=== PATIENT | female | born 1955 | race Caucasian/White ===

== ENCOUNTER 2021-10-19 15:22 | Outpatient (CLI) | payer MEDICARE, BC, SELFPAY ==
[2021-10-19 11:08] LABS: Albumin* 4.4 g/dL (3.3-5.0); Chloride* 105 mmol/L (96-114); Sodium* 141 mmol/L (135-149)
[2021-10-19 11:10] LABS: Bilirubin Total* 0.4 mg/dL (0.1-1.5); Creatinine* 0.8 mg/dL (0.5-1.5); Estimated Glomerular Filt Rate 81 ml/min
[2021-10-19 11:11] LABS: Alanine Aminotransferase* 31 U/L (4-35); Alkaline Phosphatase* 89 U/L (40-150); Aspartate Amino Transferase* 32 U/L (12-35); Blood Urea Nitrogen* 22 mg/dL (7-30); Calcium* 8.9 mg/dL (8.4-10.6); Carbon Dioxide* 24 mmol/L (20-32); Glucose* 110 mg/dL (60-115); Total Protein* 6.9 g/dL (6.0-8.3)
== END 2021-10-19 15:23 | disposition home or self-care (01) ==
PROVIDERS: Visit Provider Dermatology
DX: Z79.899 Other long term (current) drug therapy (principal)
CPT/HCPCS: 80053

== ENCOUNTER 2022-01-16 16:07 | Outpatient (CLI) | payer MEDICARE, BC, SELFPAY ==
--- OUTSIDE RECORDS SUMMARY | 2022-01-16 16:14 | XMS_ITS | Clinical Summary ---
:1955 Author Organization [facility] [facility] [place] [address] Care Team Providers Name Role Phone Jamaalbeatrice Janine Dooley DO Primary Care Provider Allergies Active Allergy Reactions Severity Noted Date Comments Amoxicillin Hives 07/18/2009 Penicillins Hives 08/27/2021 Medications Medication Sig Dispensed Refills Start Date End Date Status cholecalciferol Take 1 capsule by 0 02/29/2016 Active (VITAMIN D3) 1,000 mouth once daily. unit capsuleIndications: Vitamin D deficiency folic acid 1 mg Take 1 mg by mouth 0 04/08/2020 Active tablet once daily. methotrexate TAKE 10 TABLETS BY 0 06/06/2020 Active (RHEUMATREX) 2.5 mg MOUTH WEEKLY. JUNE tablet SPLIT DOSE BETWEEN 2 CONSECUTIVE DAYS calcium carbonate Take 1 Tablet (600 180 Tablet 3 08/16/2020 Active (CALTRATE) 600 mg mg) by mouth 2 calcium (1,500 mg) times daily with tablet meals. clobetasol cream APPLY TOPICALLY TO 0 08/29/2020 Active 0.05% (TEMOVATE) 0.05 THE AFFECTED AREA % cream TWICE DAILY NEEDED calcipotriene 0.005% calcipotriene 0.005 % topical ointment 0 Active (DOVONEX) 0.005 % APPLY EXTERNALLY TO THE AFFECTED AREA DAILY ointment mirabegron Take 1 Tablet (25 90 Tablet 3 12/07/2021 Active EXTENDED-release mg) by mouth once (Myrbetriq) 25 mg daily. 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 Overview: Colonoscopy 05/2008 polyps repeat in 5 ye ars Colonoscopy 09/2011 normal repeat in 5 ye ars Colonoscopy 10/2018 long colon, repeat in 5 years with Pediatrics scope Encounters Date Type Specialty Care Team Description 12/01/2021 Refill Janine Werner, DO Refill Request (Myrbetriq) from Last 3 Months Immunizations Name Administration Dates Next Due COVID-19 vaccine (Moderna 100mcg/0.5mL) PF, MDV 12/04/2020 Influenza, High-dose Quadrivalent Inactivated 11/21/2020 Influenza, IIV3 (Age >=3 years) 11/17/2012, 11/11/2011 Influenza, IIV4 10/21/2019, 12/22/2016 Influenza, IIV4 (=>6mos) MDV 03/09/2018 Pneumococcal Poly,23-Valent (Pneumovax) 11/24/2020 Td (Age >=7 Years) 03/06/2000 Tdap 05/21/2013, 05/18/2010 Zoster (Shingrix-RZV, recombinant) 11/09/2020, 04/21/2018 Family History Medical History Relation Name Comments Leukemia Brother exacerbated billy ntia Other Brother colon polyps and duodenal mass Cancer-prostate Father Heart failure Father Other Father interstitial carmel g disease Diabetes Mother Heart Disease Mother Triple bypass Hyperlipidemia Mother Hypertension Mother Other Mother dementia Cancer Paternal Grandfather Cancer Paternal Grandmother Alzheimer's disease Sister 1 Judy early onset Hyperlipidemia Sister 1 Judy Other Sister 1 Judy colon polyps Thyroid Disease Sister 1 Judy Other Sister 2 Kathleen risk for ocular melanoma, ? monitoring, tin roofer catherine fatigue Sleep apnea Sister 2 Kathleen No Known Problems Son 1 No Known Problems Son 2 Cancer-breast No Family History Relation Name Status Comments Brother (Age 65) Father (Age 91) pulmonary fibr osis Mother (Age 87) Paternal Grandfather Paternal Grandmother Sister 1 Judy passed of compli cations of Alzheimer's, pos sible COVID Sister 2 Kathleen Alive Son 1 Alive Son 2 Alive Social History Tobacco Use Types Packs/Day Years Used Date Never Smoker Smokeless Tobacco: Never Used Tobacco Cessation: Counseling Given: Yes Alcohol Use Standard Drinks/Week Comments Not Currently 0 (1 standard drink = 0.6 oz pure alcoho l) very rare Alcohol Habits Answer Date Recorded How often do you have a drink containing alcohol? Not asked How many drinks containing alcohol do you have on a typical Not asked day when you are drinking? How often do you have six or more drinks on one occasion? No t asked Comment: very rare 05/18/2009 Sex Assigned at Date Recorded Not on file Obstetrics History Para Term AB IAB SAB Ectopic Multiple Living Live Births 2 2 Date Outcome GA Total Labor/2nd/3rd Weight Sex Delivery Anes PTL Soumya A 1 A5 Name Clin Labor Last Filed Vital Signs Vital Sign Reading Time Taken Comments Blood Pressure 135/70 08/27/2021 12:23 PM CDT Pulse 68 08/27/2021 12:23 PM CDT Temperature 36.8 ??C (98.3 ??F) 08/27/2021 12:23 PM CDT Respiratory Rate - - Oxygen Saturation 96% 08/27/2021 12:23 PM CDT Inhaled Oxygen Concentration - - Weight 78.5 kg (173 lb) 09/13/2020 1:18 PM CDT Height 156.1 cm (5' 1.46) 08/16/2020 1:18 PM CDT Body Mass Index 32.2 08/16/2020 1:18 PM CDT Plan of Treatment Health Maintenance Due Date Last Done Comments COVID-19 vaccine series (4 - 01/29/2021 12/04/2020, 021, Booster for Moderna series) 04/07/2020 BMI (ht and wt on same day) for 08/16/2021 08/16/2020, 04/10, age 18+ 02/29/2016 Influenza for age 65+ 10/11/2021 11/21/2020, 10/21/2019, 03/09/2018, Additional history exists Pneumococcal series for age 65+ (2 11/24/2021 11/24/2020 - PCV) Mammogram for age 45-75 08/24/2022 08/24/2021, 07/21/2020, 04/14/2018, Additional history exists Medicare Wellness for age 65+ 08/27/2022 08/27/2021, 2020 Depression screening for age 12+ 08/29/2022 08/29/2021, , 08/16/2020, Additional history exists Tetanus booster 05/22/2023 05/21/2013, 05/18/2010, 03/06/2000 Colonoscopy through age 75 10/15/2023 10/14/2018, 9, 10/14/2018, Additional history exists Lipids for age 45-75 08/27/2026 08/27/2021, 08/15/2020, 04/21/2018, Additional history exists Tdap Completed 05/21/2013, 05/18/2010 Hepatitis C screening for age Completed 08/15/2020, 2020 18-79 Zoster (shingles) series for age Completed 11/09/2020, 01/2019 50+ DEXA/DXA scan for age 65+ Completed 08/29/2021, 04/27/2018 , 10/04/2014, Additional history exists Results Not on filefrom Last 3 Months Insurance Payer Benefit Plan / Subscriber ID Effective Dates Phone Addre ss Type Group [employer] [id number] 2020-Present [address] [address] [place], [place] ONLY [phone] Advance Directives Documents on File Type Date 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
[2022-01-16 17:31] LABS: Albumin* 4.7 g/dL (3.3-5.0); Chloride* 105 mmol/L (96-114); Potassium* 4.3 mmol/L (3.6-5.1); Sodium* 143 mmol/L (135-149)
[2022-01-16 17:33] LABS: Bilirubin Total* 0.4 mg/dL (0.1-1.5); Creatinine* 0.9 mg/dL (0.5-1.5); Estimated Glomerular Filt Rate 71 ml/min
[2022-01-16 17:34] LABS: Alanine Aminotransferase* 42 U/L (4-35); Alkaline Phosphatase* 97 U/L (40-150); Aspartate Amino Transferase* 42 U/L (12-35); Blood Urea Nitrogen* 19 mg/dL (7-30); Calcium* 9.3 mg/dL (8.4-10.6); Carbon Dioxide* 27 mmol/L (20-32); Glucose* 101 mg/dL (60-115); Total Protein* 7.3 g/dL (6.0-8.3)
== END 2022-01-16 16:08 | disposition home or self-care (01) ==
LOC: NFLDREF 16:07
PROVIDERS: Visit Provider Dermatology
DX: Z79.899 Other long term (current) drug therapy (principal)
CPT/HCPCS: 80053

== ENCOUNTER 2022-04-17 15:33 | Outpatient (CLI) | payer MEDICARE, BC, SELFPAY | END 2022-04-17 15:34 | disposition home or self-care (01) | LOC: NFLDREF 04-19 14:30 | PROVIDERS: Visit Provider Dermatology | DX: Z79.899 Other long term (current) drug therapy (principal); Z79.631 Long term (current) use of antimetabolite agent | CPT/HCPCS: 80053 ==

== ENCOUNTER 2022-06-06 14:50 | Outpatient (CLI) | payer MEDICARE, BC, SELFPAY | END 2022-06-06 14:51 | disposition home or self-care (01) | PROVIDERS: PCP Dermatology; Referring Provider Dermatology; Visit Provider Dermatology | DX: Z51.81 Encounter for therapeutic drug level monitoring (principal); Z79.631 Long term (current) use of antimetabolite agent | CPT/HCPCS: 80076 ==

== ENCOUNTER 2022-10-03 14:00 | Outpatient (CLI) | payer MEDICARE, BC, SELFPAY | END 2022-10-03 14:01 | disposition home or self-care (01) | LOC: NFLDREF 10-05 14:32 | PROVIDERS: Visit Provider Dermatology | DX: L20.9 Atopic dermatitis, unspecified (principal); Z79.631 Long term (current) use of antimetabolite agent | CPT/HCPCS: 80053 ==

== ENCOUNTER 2022-10-21 11:00 | Outpatient (RCR) | payer MEDICARE, BC, SELFPAY | END 2023-02-18 23:59 | disposition home or self-care (01) | PROVIDERS: PCP Dermatology; Visit Provider Student in an Organized Health Care Education/Training Program | DX: N81.10 Cystocele, unspecified (principal); R27.8 Other lack of coordination; R39.15 Urgency of urination; R35.1 Nocturia; R35.0 Frequency of micturition; Z51.89 Encounter for other specified aftercare | CPT/HCPCS: 97110; 97140; 97162; 97535 ==

== ENCOUNTER 2022-10-31 10:56 | Emergency (ER) | payer MEDICARE, BC, SELFPAY ==
[2022-10-31] VITALS (12 sets, daily range): BP systolic 108–184; BP diastolic 73–85; PULSE 60–69; RESP 18; TEMP 36.7; O2SAT 97–100; BMI 30.2
--- NOTE | 2022-10-31 11:28 | ED_ITS ---
HPI - General Adult General Time Seen by Provider: 11:29 Date Seen: 10/31/22 Chief complaint: Neuro Symptoms/Altered Deficit Stated complaint: Head pain, difficulty focusing and memory lapse Time Seen by Provider: 10/31/22 11:10 Source: patient and family Mode of arrival: ambulatory Limitations: no limitations History of Present Illness HPI narrative: Patient is a 67-year-old female with a history psoriasis on her fingers for it she takes methotrexate presenting to the emergency department for headache and memory issues. She is here with her . She states roughly months ago they got back from a trip to [place] and she had a dental implant placed soon after that. After the implants she is having tooth pain and a frontal headache that has since gone to a occipital headache that radiates to the front occasionally. She is says a very sharp pain in the back her head. Her tooth no longer hurts. She takes ibuprofen intermittently for the pain. Has not taken anything for the pain today. She is also concerned because she has been having issues with memory. States for the past few weeks she has been having more issues with number membranes pink and since similar things. 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 The patient's states that he is exaggerating. She also states she has occasional double visio n but does not currently have this. She states this has been going on for about a week and a half. Denies fevers, chills, weakness normal chest pain, shortness of breath, abdominal pain, hearing changes. Does admit to some fatigue. 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 Moist mucous membranes. Neck: Symmetric, trachea midline, No thyromegaly. CVS: RRR, No murmurs or gallops. Peripheral pulses 2+ and equal in all extremities RESP: Unlabored respiratory effort. Clear to auscultation bilaterally. GI: Nontender/Nondistended, No rebound or guarding. MSK:Extremities w/o deformity, Normal Active ROM Skin: Warm, Dry. No rashes or lesions. Neuro: Normal Muscle tone, No focal neurological deficits. GCS 15 Psych: Awake, Alert, & Oriented x3. Appropriate mood and affect. Const: Vital Signs, click to edit/add: Vital Signs - 24 hr 10/31/22 11:03 10/31/22 11:29 10/31/22 12:11 Temperature 98.1 F Pulse Rate Pulse Rate [Pulse Oximeter] 65 Respiratory Rate 18 Blood Pressure 184/81 H Blood Pressure [Ri ght Upper Arm] 108/83 Pulse Oximetry 100 98 Oxygen Delivery Me thod Room Air 10/31/22 12:16 10/31/22 12:30 10/31/22 12:33 Temperature Pulse Rate 60 65 Pulse Rate [Pulse Oximeter] Respiratory Rate Blood Pressure 182/85 H 158/85 H Blood Pressure [Ri ght Upper Arm] Pulse Oximetry 99 99 Oxygen Delivery Me thod 10/31/22 12:34 10/31/22 12:41 10/31/22 12:45 Temperature Pulse Rate 65 66 Pulse Rate [Pulse Oximeter] Respiratory Rate Blood Pressure 158/85 H 154/82 H Blood Pressure [Ri ght Upper Arm] Pulse Oximetry 98 100 Oxygen Delivery Me thod 10/31/22 12:46 10/31/22 12:52 10/31/22 12:56 Temperature Pulse Rate 69 62 63 Pulse Rate [Pulse Oximeter] Respiratory Rate Blood Pressure 148/73 H 146/84 H Blood Pressure [Ri ght Upper Arm] Pulse Oximetry 97 99 98 Oxygen Delivery Me thod Course Vital Signs Vital signs: Initial Vital Signs Temperature 98.1 F 10/31/22 11:03 Temperature Source Temporal Artery Scan 10/31/22 11:03 Pulse Rate 65 10/31/22 11:03 Respiratory Rate 18 10/31/22 11:03 Blood Pressure 108/83 10/31/22 11:03 Blood Pressure Mean 91 10/31/22 11:03 Pulse Oximetry 100 10/31/22 11:03 Oxygen Delivery Method Room Air 10/31/22 11:03 Vital Signs Temperature 98.1 F 10/31/22 11:03 Pulse Rate 65 10/31/22 11:03 Respiratory Rate 18 10/31/22 11:03 Blood Pressure 108/83 10/31/22 11:03 Pulse Oximetry 100 10/31/22 11:03 Oxygen Delivery Method Room Air 10/31/22 11:03 Temperature 98.1 F 10/31/22 11:03 Pulse Rate 63 10/31/22 12:56 Respiratory Rate 18 10/31/22 11:03 Blood Pressure 146/84 H 10/31/22 12:56 Pulse Oximetry 98 10/31/22 12:56 Oxygen Delivery Method Room Air 10/31/22 11:03 Medical Decision Making MDM Narrative Medical decision making narrative: Patient 67 year female presented emergency department for a headache in the occipital region, occasional blurry vision, and memory issues. The symptoms were gone for the past 2 to 4 weeks. With a relatively new onset of her memory issues I would do a head CT to make sure there is no other abnormalities. She denies any trauma to her head. Also ordered a CBC, BMP, magnesium, urinalysis. We did head CT for head else called in CT scanner to review the images immediately. When I reviewed them and few to have a large acute on chronic subdural hematoma about 2 cm in size with midline shift. The ventricles were seen in right portion of this couple. I immediately the images sent to [facility] and called for staff drains from [facility]. I spoke to admitting ICU provider and explained the situation and they accepted her for transfer. Patient is curre ntly stable but blood pressure has been going up and is now in the 180 systolic and labetalol was ordered. Goal is 140 systolic. Rest the lab work is pending at this time. I was able speak to the again and he does state he now remembers roughly round time the symptoms seemed to start she tripped and fell and hit her forehead against the ground. We will transfer the patient however means of transport can get her transferred the fastest. Lab Data Labs: Lab Results 10/31/22 Range/Units 11:47 WBC 8.39 (4.50-11.00) K/uL RBC 3.86 L (4.00-5.20) m/uL Hgb 11.6 L (12.0-16.0) gm/dL Hct 34.8 (33.0-51.0) % MCV 90 (80-100) fL MCH 30 (26-34) pg MCHC 33 (32-36) gm/dL RDW Coeff of Len 14.1 (11.5-15.5) % Plt Count 243 (140-440) K/uL Neut % (Auto) 65.5 (42.0-72.0) % Lymph % (Auto) 24.4 (20-44) % Luna % (Auto) 6.3 (0.0-11.0) % Eos % (Auto) 3.2 (0.0-7.0) % Baso % (Auto) 0.5 (0.0-3.0) % Neut # (Auto) 5.49 (1.7-7.0) K/uL Lymph # (Auto) 2.05 (0.90-2.90) K/uL Luna # (Auto) 0.50 (0.00-0.90) K/UL Eos # (Auto) 0.27 (0.00-0.50) K/uL Baso # (Auto) 0.04 (0.00-0.30) K/uL Abs Immat Gran (auto) 0.01 (0.00-0.30) K/uL Imm/Tot Granulo (auto) 0.1 % Sodium 139 (135-149) mmol/L Potassium 3.9 (3.6-5.1) mmol/L Chloride 110 (96-114) mmol/L Carbon Dioxide 22 (20-32) mmol/L Anion Gap 7 (7-15) mEq/L BUN 23 (7-30) mg/dL Creatinine 0.9 (0.5-1.5) mg/dL Estimated Creat Clear 43.18 Estimated GFR 70 ml/min Glucose 84 (60-115) mg/dL Calcium 9.0 (8.4-10.6) mg/dL Magnesium 2.2 (1.5-2.6) mg/dL Imaging Data CT scan - head: Radiologist's impression: INDICATION: X. COMPARISON: None. TECHNIQUE: CT of the brain/head without the use of IV contrast. Multiplanar axial, coronal, and sagittal reformats were reconstructed. FINDINGS: Large mixed attenuation subdural hematoma over the left cerebral hemisphere. This extends from the vertex down along the lateral convexities. The thickness of the hematoma is about 1.8 cm at maximum. There is underlying effacement of the normal sulcation. There is 1.1 cm of left to right midline shift at the level of the lateral ventricles. Minimal CSF at the basal cisterns without downward herniation seen. Compressed left lateral ventricle. No right, 3rd, or 4th ventriculomegaly. Normal hayward-white matter differentiation without acute territorial infarct or evidence of secondary infarct related to midline shift. No intraparenchymal mass. No fracture or focal osseous lesion. The mastoid and middle ears are clear. The paranasal sinuses are clear. Included orbit and globe are normal. IMPRESSION: Large acute on chronic left subdural hematoma with associated 1.1 cm of [id number] midline shift. Findings were called to Dr. Willy Gloria (Dr. Land in patient room) at 12:19 p.m. ESTABLISHMENT GUIDE on 10/31/[address] Batista. Please note that all CT scans at this facility use dose modulation, iterative reconstruction, and/or weight-based dosing when appropriate to reduce radiation dose to as low as reasonably achievable. Dictated by Ange Batista MD @ 10/31/2022 12:22:20 PM Critical Care Time Critical Care Time Critical Care Time: Yes Attestation: The patient required my highest level preparedness to intervene emergently and I personally spent this critical care time directly and personally managing the patient. This critical care time included: Obtaining a history; Examining the patient; Pulse oximetry; Ordering and reviewing of studies; Arranging urgent treatment with development of a management plan; Evaluation of patients response to treatment; Frequent reassessment discussions with other providers. This critical care time was performed to assess and manage the high probability of imminent life-threatening deterioration that could result in multiorgan failure. It was exclusive of separate billable procedures and treating other patients and teaching time. Total Critical Care Time in Minutes: 67 Discharge Plan Discharge Clinical Impression: Subdural hematoma Patient Disposition: Xfer [facility] Discharge Location: [facility] Condition: Critical Prescriptions: No Action calcipotriene 0.005 % ointment 1 applic topical BID Qty: 60 1RF Rx Instructions: rub in gently and completely methotrexate sodium 2.5 mg tablet 20 mg PO QWEEK Qty: 96 0RF Rx Instructions: Take 8 tablets one day every week Stand Alone Forms: [employer] Info Instructions
--- NOTE | 2022-10-31 11:29 | CRLHL7_ITS ---
For Patients: As a result of the Century Cures Act, medical imaging exams and procedure reports are released immediately into your electronic medical record. You may view this report before your referring provider. If you have questions, please contact your health care provider. INDICATION: X. COMPARISON: None. TECHNIQUE: CT of the brain/head without the use of IV contrast. Multiplanar axial, coronal, and sagittal reformats were reconstructed. FINDINGS: Large mixed attenuation subdural hematoma over the left cerebral hemisphere. This extends from the vertex down along the lateral convexities. The thickness of the hematoma is about 1.8 cm at maximum. There is underlying effacement of the normal sulcation. There is 1.1 cm of left to right midline shift at the level of the lateral ventricles. Minimal CSF at the basal cisterns without downward herniation seen. Compressed left lateral ventricle. No right, 3rd, or 4th ventriculomegaly. Normal hayward-white matter differentiation without acute territorial infarct or evidence of secondary infarct related to midline shift. No intraparenchymal mass. No fracture or focal osseous lesion. The mastoid and middle ears are clear. The paranasal sinuses are clear. Included orbit and globe are normal. IMPRESSION: Large acute on chronic left subdural hematoma with associated 1.1 cm of [id number] midline shift. Findings were called to Dr. Willy Gloria (Dr. Land in patient room) at 12:19 p.m. FIRE PROTECTION EQUIPMENT TECHNICIAN on 10/31/[address] Batista. Please note that all CT scans at this facility use dose modulation, iterative reconstruction, and/or weight-based dosing when appropriate to reduce radiation dose to as low as reasonably achievable. Dictated by Ange Batista MD @ 10/31/2022 12:22:20 PM (Electronically Signed)
[2022-10-31] MEDS: KETOROLAC 15 MG/ML inj IVP (11:55)
--- NOTE | 2022-10-31 12:03 | ED.NURSE ---
Stroke code was initiated.
[2022-10-31 12:10] LABS: Basophils Absolute Auto 0.04 K/uL (0.00-0.30); Basophils Percent Auto 0.5 % (0.0-3.0); Eosinophils Absolute Auto 0.27 K/uL (0.00-0.50); Eosinophils Percent Auto 3.2 % (0.0-7.0); Hematocrit 34.8 % (33.0-51.0); Hemoglobin* 11.6 gm/dL (12.0-16.0); Immature Granulocytes Abs Auto 0.01 K/uL (0.00-0.30); Immature Granulocytes Pct Auto 0.1 %; Lymphocytes Absolute Auto 2.05 K/uL (0.90-2.90); Lymphocytes Percent Auto 24.4 % (20-44); Mean Corpuscular HGB Conc 33 gm/dL (32-36); Mean Corpuscular Hemoglobin 30 pg (26-34); Mean Corpuscular Volume 90 fL (80-100); Monocytes Percent Auto 6.3 % (0.0-11.0); Neutrophils Absolute Auto 5.49 K/uL (1.7-7.0); Neutrophils Percent Auto 65.5 % (42.0-72.0); Platelet Count* 243 K/uL (140-440); RDW Coefficient of Variation % 14.1 % (11.5-15.5); Red Blood Count 3.86 m/uL (4.00-5.20); White Blood Count* 8.39 K/uL (4.50-11.00)
--- NOTE | 2022-10-31 12:18 | ED.NURSE ---
Contacted with update on patient status.
[2022-10-31] MEDS: LABETALOL HCL 5 MG/ML inj 10 MG IVP (12:33)
[2022-10-31 12:43] LABS: Chloride* 110 mmol/L (96-114); Potassium* 3.9 mmol/L (3.6-5.1); Sodium* 139 mmol/L (135-149)
[2022-10-31 12:45] LABS: Creatinine* 0.9 mg/dL (0.5-1.5); Est. Creatinine Clearance* 43.18; Estimated Glomerular Filt Rate 70 ml/min; Slide Review Reflex No
[2022-10-31 12:46] LABS: Blood Urea Nitrogen* 23 mg/dL (7-30); Carbon Dioxide* 22 mmol/L (20-32); Glucose* 84 mg/dL (60-115)
[2022-10-31 12:47] LABS: Magnesium* 2.2 mg/dL (1.5-2.6)
[2022-10-31 12:51] LABS: Anion Gap 7 mEq/L (7-15)
--- NOTE | 2022-10-31 13:15 | ED.NURSE ---
Patient transferred emergently to [place] [id number] via [facility]. Patient without focal neural deficits at time of transfer. Keppra infusing in right AC, left AC IV saline locked.
== END 2022-10-31 13:28 | disposition short-term general hospital (02) ==
PROVIDERS: Emergency Provider Student in an Organized Health Care Education/Training Program; PCP Student in an Organized Health Care Education/Training Program
DX: S06.5X0A Traumatic subdural hemorrhage without loss of consciousness, initial encounter (principal)
CPT/HCPCS: 36415; 70450; 80048; 81001; 83735; 85025; 96365; 96375; 99284; 99291; J1885; J1953

== ENCOUNTER 2022-10-31 12:52 | Outpatient (CLI) | payer MEDICARE, BC, SELFPAY | END 2022-10-31 12:53 | disposition home or self-care (01) | LOC: AMB 11-07 16:35 | PROVIDERS: PCP Student in an Organized Health Care Education/Training Program; Visit Provider Family Medicine | DX: I62.00 Nontraumatic subdural hemorrhage, unspecified (principal) | CPT/HCPCS: A0425; A0434 ==

== ENCOUNTER 2022-11-29 08:45 | Outpatient (CLI) | payer MEDICARE, BC, SELFPAY ==
--- NOTE | 2022-11-29 09:00 | CRLHL7_ITS ---
For Patients: As a result of the Century Cures Act, medical imaging exams and procedure reports are released immediately into your electronic medical record. You may view this report before your referring provider. If you have questions, please contact your health care provider. INDICATION: subdural hematoma, traumatic subdural hemorrhage without loss of consciousness TECHNIQUE: CT of the head without contrast. Coronal and sagittal reformats. Bone and soft tissue algorithms. COMPARISON: CT head 10/31/2022, 07/12/2009 FINDINGS: Left frontal-parietal craniotomy flap is noted. There is a small residual low-density subdural collection along the left frontal-parietal convexity measuring up to 5 mm, as well as a extradural fluid collection subjacent to the currently flap measuring up to 4 mm. No significant mass effect on the underlying parenchyma. Significantly improved rightward midline shift, with residual 2 mm rightward shift. No intraparenchymal hematomas. No cortical infarcts. Minimal calcifications/mineralizations in the globus pallidus. Small presumed small chronic lacunar infarct left basal ganglia. Partially empty configuration of the sella. The optic chiasm is unremarkable. The cerebellar tonsils are normal. Calcified pineal gland. No calvarial lesions. Carotid siphon atherosclerotic calcifications. Normal parenchymal volume. The scalp and soft tissues are grossly normal. Rightward deviation of the nasal septum. Impression: 1. Postoperative changes of left frontal-parietal craniotomy flap for evacuation of hematoma. Small residual low-density subdural collection measuring up to 5 mm, and extradural fluid collection subjacent to the craniotomy flap measuring 4 mm. No significant mass effect on the underlying parenchyma. 2. Significantly improved rightward midline shift with residual 2 mm shift. 3. No acute intracranial abnormality. Please note that all CT scans at this facility use dose modulation, iterative reconstruction, and/or weight-based dosing when appropriate to reduce radiation dose to as low as reasonably achievable. Dictated by Junaid Sutherland MD @ 11/30/2022 10:57:40 AM (Electronically Signed)
== END 2022-11-29 08:46 | disposition home or self-care (01) ==
LOC: CT 08:45
PROVIDERS: PCP Student in an Organized Health Care Education/Training Program; Visit Provider Student in an Organized Health Care Education/Training Program
DX: S06.5X0D Traumatic subdural hemorrhage without loss of consciousness, subsequent encounter (principal)
CPT/HCPCS: 70450

== ENCOUNTER 2022-12-24 08:34 | Outpatient (CLI) | payer MEDICARE, BC, SELFPAY | END 2022-12-24 08:35 | disposition home or self-care (01) | LOC: FRMREF 08:35 | PROVIDERS: PCP Student in an Organized Health Care Education/Training Program; Visit Provider Dermatology | DX: L20.89 Other atopic dermatitis (principal); Z79.631 Long term (current) use of antimetabolite agent | CPT/HCPCS: 80053 ==

== ENCOUNTER 2023-01-07 14:01 | Outpatient (CLI) | payer MEDICARE, BC, SELFPAY ==
--- NOTE | 2023-01-07 14:00 | CRLHL7_ITS ---
For Patients: As a result of the Century Cures Act, medical imaging exams and procedure reports are released immediately into your electronic medical record. You may view this report before your referring provider. If you have questions, please contact your health care provider. INDICATION: Traumatic subdural hematoma. TECHNIQUE: CT of the head without contrast. Coronal and sagittal reformats are included. COMPARISON: None. FINDINGS: Postsurgical changes of left frontoparietal craniotomy. Trace low-density extra-axial collection underlying the craniotomy flap, decreased in size compared to the prior exam. No acute intracranial hemorrhage. No mass effect or midline shift. No hydrocephalus or extra-axial collections. Patchy white matter hypoattenuation, typical for chronic microvascular ischemic changes. Mild to moderate generalized parenchymal volume loss. Intracranial vascular calcifications. No acute osseous abnormalities. Mastoid air cells and paranasal sinuses are clear. Normal soft tissues. IMPRESSION: 1. Postop changes of left frontoparietal craniotomy again demonstrated. Decreased size of a residual low-density subdural collection underlying the craniotomy flap. No evidence of recurrent hemorrhage underlying the craniotomy flap. No acute intracranial hemorrhage elsewhere within the brain. 2. Stable chronic/senescent changes as above. Please note that all CT scans at this facility use dose modulation, iterative reconstruction, and/or weight-based dosing when appropriate to reduce radiation dose to as low as reasonably achievable. Dictated by Felipe Collins MD @ 01/07/2023 2:52:16 PM (Electronically Signed)
== END 2023-01-07 14:02 | disposition home or self-care (01) ==
LOC: CT 14:03
PROVIDERS: PCP Student in an Organized Health Care Education/Training Program; Visit Provider Radiology Diagnostic Radiology
DX: S06.5XAD Traumatic subdural hemorrhage with loss of consciousness status unknown, subsequent encounter (principal)
CPT/HCPCS: 70450

== ENCOUNTER 2023-03-31 15:45 | Outpatient (REF) | payer MEDICARE, BC, SELFPAY ==
--- OUTSIDE RECORDS SUMMARY | 2023-04-01 06:39 | XMS_ITS | Clinical Summary ---
Author Name Unknown Organization [employer] [facility] [employer] Address [place], [place] [address] Care Team Providers Care Horse Trekking Guide Name Role Phone Fany Hall Primary Care Provider [phone] Allergies Active Allergy Reactions Criticality Noted Date Comments Amoxicillin Hives 07/18/2009 Penicillins Hives 08/27/2021 Medications Medication Sig Dispensed Refills Start Date End Date Status folic acid 1 mg tablet Take 1 mg by mouth once daily. 0 1 Active methotrexate (RHEUMATREX) 2.5 mg tablet Take 10 mg by mouth 2 times daily on Tuesdays. 0 1 Active calcium carbonate (CALTRATE) 600 mg calcium (1,500 mg) tablet Take 600 mg by mouth once daily. 180 Tablet 3 1 Active oxybutynin (DITROPAN) 5 mg tabletIndications:U rge incontinence of urine Take 1 Tablet (5 mg) by mouth once daily in the evening. For urinary incontinence 60 Tablet 3 3 Active acetaminophen (TYLENOL) 325 mg tabletIndications:A cute post-operative pain Take 1-2 Tablets (325-650 mg) by mouth every 6 hours if needed for Headache, Pain or Temp>101.5F (38.6C) (For mild pain). Max acetaminophen dose: 4000mg in 24 hrs. 30 Tablet 0 3 Active sennosides-docusate (SENOKOT S) (8.6-50 mg) tabletIndications:C onstipation due to opioid therapy Take 1-4 Tablets by mouth two times daily. 30 Tablet 0 3 Active Myrbetriq 25 mg tabletIndications:O veractive bladder,Urge incontinence of urine Take 1 Tablet (25 mg) by mouth once daily. 90 Tablet 0 3 Active celecoxib (CELEBREX) 200 mg capsuleIndications: Primary osteoarthritis of right knee Take 1 Capsule (200 mg) by mouth 2 times daily if needed for Pain. 0 4 Active cholecalciferol, Vitamin D3, (Vitamin D-3) 5,000 unit tab tablet Take 1 Tablet (5,000 units) by mouth once daily. 0 4 Active losartan (COZAAR) 50 mg tabletIndications:H TN (hypertension) Take 1 Tablet (50 mg) by mouth once daily. Dose increase 03/03/23 30 Tablet 0 4 Active simvastatin (ZOCOR) 10 mg tabletIndications:M ixed hyperlipidemia Take 1 Tablet (10 mg) by mouth at bedtime. 90 Tablet 0 4 Active losartan (COZAAR) 25 mg tabletIndications:H TN (hypertension) Take 1 Tablet (25 mg) by mouth once daily. 90 Tablet 3 4 03/03/19 24 Discontinu ed(*Medica tion adjustment ) Active Problems Problem Noted Date Diagnosed Date Seizure 02/23/2023 Last Assessment & Plan: Chart update only. TORO Cage .................... 02/23/2023 8:17 AM Hypertriglyceridemia 02/14/2023 Psoriasis 11/02/2022 Subdural hematoma 10/31/2022 Last Assessment & Plan: Chart update only. TORO Cage .................... 02/23/19 Peanut allergy 08/18/2012 Osteopenia 05/18/2010 HTN (hypertension) 05/15/2010 Pre-diabetes 05/24/2009 Vitamin D deficiency 05/24/2009 Benign neoplasm of colon 05/12/2008 Overview: Colonoscopy 05/2008 polyps repeat in 5 years Colonoscopy 09/2011 normal repeat in 5 years Colonoscopy 10/2018 long colon, repeat in 5 years with Pediatrics scope Encounters Date Type Department Care Team Description 03/31/2023 3:15 PM BEHAVIORAL SPECIALIST Ancillary Procedure [facility] [address] [place] [address] Arrived 03/31/2023 2:15 PM BEHAVIORAL SPECIALIST Office Visit [facility] [address] [place] [address] Jaelyn Powell, Neck Pain/problem (OMT) 03/31/2023 Travel 03/13/[address] [facility] [address] [place] [address] Fany Hall PA Medication Management 03/10/2023 1:00 PM BEHAVIORAL SPECIALIST Office Visit [address] [place] [address] Jaelyn Powell DO Neck Pain/problem 03/10/2023 Travel 03/03/2023 10:00 AM BEHAVIORAL SPECIALIST Nurse/Clinic Staff Only [address] [place] [address] Blood Pressure (146/74) 03/03/2023 9:30 AM BEHAVIORAL SPECIALIST Orders Only [address] [address] [place], [place] [facility] 03/03/[address] [place] [address] Janine Werner DO Blood Pressure (146/74) 03/03/2023 Travel 02/17/2023 1:00 PM BEHAVIORAL SPECIALIST Office Visit [address] [place] [address] Jaelyn Powell DO Neck Pain/problem (OMT) 02/17/2023 Travel 02/14/2023 8:40 AM BEHAVIORAL SPECIALIST Office Visit [address] [place] [address] Fany Hall PA Blood Pressure (Check); Follow Up (Labs done back in ) 02/14/2023 Travel 01/15/[address] [place] [address] Janine Werner, Questions 01/09/2023 11:20 AM BEHAVIORAL SPECIALIST Office Visit [facility] [address] [place] [address] Usama Gudino MD Follow Up 01/08/2023 Travel 01/07/2023 Orders Only [facility] Scanner 1 scan: (1-Ord) [place], CT HEAD/BRAIN WO CON, 01/07/2023 01/02/[address] [facility] [address] [place] [address] Janine Werner, Refill Request (Nayely) from Last 3 Months Immunizations Name Administration Dates Next Due COVID-19 vaccine (Moderna 100mcg/0.5mL) PF, MDV 12/04/2020 Influenza, High-dose Quadrivalent Inactivated ,11/21/2020 Influenza, IIV3 (Age >=3 years) 11/17/2012,11/10 Influenza, IIV4 10/21/2019,12/22/2016 Influenza, IIV4 (=>6mos) MDV 03/09/2018 Influenza, Inactivated AIIV4 (Age 65+ Years) Preserv Free 11/22/2022 Pneumococcal Poly,23-Valent (Pneumovax) 11/25/19 21 RSV, Recombinant ADJ Reconst ituted (Arexvy 120MCG/0.5mL) 12/15/2022 Td (Age >=7 Years) 03/06/2000 Tdap 05/21/2013,05/18/2010 Zoster (Shingrix-RZV, recombinant) 11/09/2020, Family History Medical History Relation Name Comments Leukemia Brother exacerbated dem entia Other Brother colon polyps an d duodenal mass Cancer-prostate Father Heart failure Father Other Father interstitial stephanie ng disease Diabetes Mother Heart Disease Mother Triple bypass Hyperlipidemia Mother Hypertension Mother Other Mother dementia Cancer Paternal Grandfather Cancer Paternal Grandmother Alzheimer's disease Sister 1 Judy early on set Hyperlipidemia Sister 1 Judy Other Sister 1 Judy colon polyps Thyroid Disease Sister 1 Judy Other Sister 2 Kathleen risk for ocular melanoma, ? monitoring, chronic fatigue Sleep apnea Sister 2 Kathleen No Known Problems Son 1 No Known Problems Son 2 Cancer-breast No Family History Relation Name Status Comments Brother (Age 65) Father (Age 91) pulmonary fibrosis Mother (Age 87) Paternal Grandfather Paternal Grandmother Sister 1 Judy passed of compl ications of Alzheimer's, possible COVID Sister 2 Kathleen Alive Son 1 Alive Son 2 Alive Social History Tobacco Use Types Packs/Day Years Used Date Smoking Tobacco: Never Smokeless Tobacco: Never Tobacco Cessation:Counseling Given: Yes Alcohol Use Standard Drinks/Week Comments Not Currently 0 (1 standard drink = 0.6 oz pur e alcohol) very rare PHQ-2 Answer Date Recorded PHQ-2 TOTAL SCORE 0 11/22/2022 Social Connections Answer Date Recorded Frequency of Communication with Friends and Fami ly 0 03/31/2023 Financial Resource Strain Answer Date R ecorded Difficulty of Paying Living Expenses 3 03/31/2023 Difficulty of Paying Living Expenses Not on file 03/31/2023 Food Insecurity Answer Date Recorded Worried About Running Out of Food in the Last Ye ar 1 03/31/2023 Transportation Needs Answer Date Record ed Lack of Transportation (Medical) 1 03/31/2023 Housing Stability Answer Date Recorded Unable to Pay for Housing in the Last Year 1 03/31/2023 Sex and Gender Information Value Date Recorded Sex Assigned at Not on file Gender Identity Not on file Sexual Orientation Not on file Obstetrics History Para Term AB IAB SAB Ectopic Multiple Livin g Live Births 2 2 Date Outcome GA Total Labor Labor/2nd/3rd Weight Sex Delivery Anes PTL Soumya A1 A5 Name Cl in Last Filed Vital Signs Vital Sign Reading Time Taken Comments Blood Pressure 150/64 03/31/2023 2:16 PM BEHAVIORAL SPECIALIST Pulse 65 03/31/2023 2:16 PM BEHAVIORAL SPECIALIST Temperature 37 ??C (98.6 ??F) 11/04/2022 7:55 AM CDT Respiratory Rate 16 11/04/2022 7:55 AM CDT Oxygen Saturation 98% 03/31/2023 2:16 PM BEHAVIORAL SPECIALIST Inhaled Oxygen Concentration - - Weight 76.2 kg (168 lb) 02/17/2023 12:56 PM BEHAVIORAL SPECIALIST Height 156.2 cm (5' 1.5) 11/22/2022 12:56 PM CD T Body Mass Index 31.23 11/22/2022 12:56 PM CDT Plan of Treatment Health Maintenance Due Date Last Done Comments Pneumococcal series for age 65+ (2 of 2 - PCV) 11/24/2021 11/24/2020 COVID-19 vaccine series (2022-24 season) 2023 12/06/2022, 08/11/2022, 12/06/2021, Additional history exists Tetanus booster 05/22/2023 05/21/2013, 09/2010, 03/06/2000 Colonoscopy through age 75 10/15/202310/14, 10/14/2018, 10/14/2018, Additional history exists Mammogram for age 45-75 10/17/2023 10/17/19, 08/24/2021, 07/21/2020, Additional history exists BMI (ht and wt on same day) for age 18+ 11/23/2023 11/22/2022, 08/02/2022, 08/16/2020, Additional history exists Depression screening for age 12+ 11/23/2023 11/22/2022, 08/29/2021, 08/27/2021, Additional history exists Medicare Wellness for age 65+ 11/23/2023, 08/27/2021, 08/16/2020 Lipids for age 45-75 03/03/2028 03/03/2023, 11/22/2022, 08/27/2021, Additional history exists Tdap Completed 05/21/2013, 05/18/2010 Hepatitis C screening for ag e 18-79 Completed 08/15/2020, 08/15/2020 Zoster (shingles) series for age 50+ Completed 11/09/2020, 04/21/2018 DEXA/DXA scan for age 65+ Completed 2021, 04/27/2018, 10/04/2014, Additional history exists Influenza for age 65+ Completed 11/22/2022 , 11/27/2021, 11/21/2020, Additional history exists Medical Devices Implanted Type Area Work Over Rig Operator Device Identifier Shelf Expiration Date Model / Serial / Lot Clamp Neuro 11mm Craniofix2 - [id number] Implanted:Qty: 3 on 11/01/2022 by Usama Gudino MD at [facility] Left: Cranium BBraun Aescul[employer] 05/30/2027 [id number] / / [id number] Dura Neuro 3x3in Duragen Plusnon-Sut - [id number] Implanted:Qty: 1 on 11/01/2022 by Usama Gudino MD at [facility] Left: Cranium Integra [email or web address] Vania 06/09/2025 [id number] / / [id number] Procedures Procedure Name Priority Date/Time Associated Diagnosis Comments BASIC METABOLIC PANEL Routine 03/31/2023 3:13 PM BEHAVIORAL SPECIALIST HTN (hypertension) LIPID PANEL W REFLEX MEASURED LDL Routine 03/03/2023 9:11 AM BEHAVIORAL SPECIALIST Hypertriglyceridem ia SCAN-CT INTERPRETATION 12:00 AM BEHAVIORAL SPECIALIST from Last 3 Months Results * (ABNORMAL) BASIC METABOLIC PANEL (03/31/2023 3:13 PM BEHAVIORAL SPECIALIST) SODIUM 141 136 - 145 mmol/L 03/31/2023 9:48 PM BEHAVIORAL SPECIALIST [facility] POTASSIUM 4.2 3.5 - 5.1 mmol/L 03/31/2023 9:48 PM BEHAVIORAL SPECIALIST [facility] CHLORIDE 103 98 - 107 mmol/L 03/31/2023 9:48 PM BEHAVIORAL SPECIALIST [facility] CO2,TOTAL 26 22 - 29 mmol/L 03/31/2023 9:48 PM BEHAVIORAL SPECIALIST [facility] ANION GAP 12 5 - 18 03/31/2023 9:48 PM BEHAVIORAL SPECIALIST [facility] GLUCOSE 92 70 - 99 mg/dL 03/31/2023 9:48 PM BEHAVIORAL SPECIALIST [facility] CALCIUM 9.8 8.8 - 10.2 mg/dL 03/31/2023 9:48 PM BEHAVIORAL SPECIALIST [facility] BUN 19 8 - 23 mg/dL 03/31/2023 9:48 PM BEHAVIORAL SPECIALIST [facility] CREATININE 0.92(H) 0.50 - 0.90 mg/dL 03/31/2023 9:48 PM [facility] BUN/CREAT RATIO 21(H) 10 - 20 4 9:48 PM [facility] eGFR 68(L) >90 mL/min/1.7 3m2 03/31/2023 9:48 PM [facility] Comment:As of 2021, eG FR is calculated by the CKD-EPI creatinine equation without race adjustment. ??eGFR can be influenced by muscle mass, exercise, and diet. ??The reported eGFR is an estimation only and is only applicable if the renal function is stable. Blood BLOOD SPECIMEN / Unknown Venipuncture / Unknown 03/31/2023 3:13 PM BEHAVIORAL SPECIALIST 03/31/2023 3:15 PM BEHAVIORAL SPECIALIST Jaelyn Powell DO CHEMISTRY [facility] [address] [place] [phone], * (ABNORMAL) LIPID PANEL W REFLEX MEASURED LDL (03/03/2023 9:11 AM BEHAVIORAL SPECIALIST) CHOLESTEROL,TOTAL 225(H) 100 - 199 mg/dL 03/03/2023 6:01 PM [facility] Comment: Cholesterol, Total Reference Ranges Desirable <200 mg/dL Borderline 200-239 mg/dL High >=240 mg/dL TRIGLYCERIDES 170(H) <150 mg/dL 03/03/2023 6:01 PM [facility] HDL CHOLESTEROL 38(L) >40 mg/dL 4 6:01 PM [facility] NON-HDL CHOLESTEROL 187(H) <145 mg/dl 03/03/2023 6:01 PM [facility] CHOL/HDL RATIO 5.92(H) <4.50 03/03/2023 6:01 PM [facility] LDL CHOLESTEROL 153(H) <=130 mg/dL 03/03/2023 6:01 PM [facility] VLDL CHOLESTEROL 34(H) <=30 mg/dL 03/03/2023 6:01 PM BEHAVIORAL SPECIALIST [facility] PROVIDER ORDERED STATUS RANDOM 03/03/2023 6:01 PM BEHAVIORAL SPECIALIST [facility] Blood BLOOD SPECIMEN / Unknown Venipuncture / Unknown 03/03/2023 9:11 AM BEHAVIORAL SPECIALIST 03/03/2023 9:11 AM BEHAVIORAL SPECIALIST Fany ENGEL CHEMISTRY [facility] [address] 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
== END 2023-03-31 15:46 | disposition home or self-care (01) ==
LOC: NFLDREF 15:45
PROVIDERS: PCP Student in an Organized Health Care Education/Training Program; Referring Provider Student in an Organized Health Care Education/Training Program; Visit Provider Dermatology
DX: L30.9 Dermatitis, unspecified (principal); Z79.631 Long term (current) use of antimetabolite agent
CPT/HCPCS: 80053

== ENCOUNTER 2023-06-24 14:30 | Outpatient (RCR) | payer MEDICARE, BC, SELFPAY | END 2023-08-12 09:44 | disposition home or self-care (01) | PROVIDERS: PCP Student in an Organized Health Care Education/Training Program; Visit Provider Family Medicine | DX: M50.30 Other cervical disc degeneration, unspecified cervical region (principal); Z51.89 Encounter for other specified aftercare | CPT/HCPCS: 80053; 97110; 97140; 97161 ==

== ENCOUNTER 2023-12-05 10:03 | Outpatient (CLI) | payer MEDICARE, BC, SELFPAY ==
--- NOTE | 2023-12-05 11:42 | W.ANESCHARGE ---
Anesthesia Charges Start Date/Time Anesthesia Start Date: 12/05/23 Anesthesia Start Time: 11:12 Stop Date/Time Anesthesia Stop Date: 12/05/23 Anesthesia Stop Time: 11:39
--- NOTE | 2023-12-05 12:15 | W.ANESCHARGE ---
Anesthesia Charges Start Date/Time Anesthesia Start Date: 12/05/23 Anesthesia Start Time: 11:12 Stop Date/Time Anesthesia Stop Date: 12/05/23 Anesthesia Stop Time: 11:39
== END 2023-12-05 10:04 | disposition home or self-care (01) ==
LOC: OP CLINIC 10:04
PROVIDERS: PCP Student in an Organized Health Care Education/Training Program; Visit Provider Internal Medicine Gastroenterology
DX: Z12.11 Encounter for screening for malignant neoplasm of colon (principal); Z12.0 Encounter for screening for malignant neoplasm of stomach; D12.8 Benign neoplasm of rectum; Z86.0100 Personal history of colon polyps, unspecified
CPT/HCPCS: 00811; 45380; 45385; 88305; J2704

== ENCOUNTER 2024-09-15 15:18 | Outpatient (CLI) | payer MEDICARE, BC, SELFPAY ==
[2024-09-15 16:04] LABS: Hematocrit* 32.3 % (33.0-51.0); Hemoglobin* 10.9 gm/dL (12.0-16.0); Immature Granulocytes Abs Auto 0.01 K/uL (0.00-0.30); Immature Granulocytes Pct Auto 0.1 %; Lymphocytes Absolute Auto 2.30 K/uL (0.90-2.90); Mean Corpuscular HGB Conc 34 gm/dL (32-36); Mean Corpuscular Hemoglobin 32 pg (26-34); Mean Corpuscular Volume 94 fL (80-100); RDW Coefficient of Variation % 14.4 % (11.5-15.5); Red Blood Count* 3.45 m/uL (4.00-5.20); White Blood Count* 9.15 K/uL (4.50-11.00)
[2024-09-15 16:06] LABS: Slide Review Reflex No
[2024-09-15 16:25] LABS: Chloride* 107 mmol/L (96-114)
[2024-09-15 16:26] LABS: Albumin* 3.7 g/dL (3.3-5.0); Potassium* 3.7 mmol/L (3.6-5.1); Sodium* 137 mmol/L (135-149)
[2024-09-15 16:28] LABS: Alanine Aminotransferase* 49 U/L (4-35); Anion Gap 6 mEq/L (7-15); Aspartate Amino Transferase* 48 U/L (12-35); Blood Urea Nitrogen* 23 mg/dL (7-30); Carbon Dioxide* 24 mmol/L (20-32); Creatinine* 0.9 mg/dL (0.5-1.5); Estimated Glomerular Filt Rate 69 ml/min
[2024-09-15 16:29] LABS: Alkaline Phosphatase* 103 U/L (40-150); Bilirubin Total* 0.1 mg/dL (0.1-1.5); Calcium* 8.7 mg/dL (8.4-10.6); Glucose* 101 mg/dL (60-115); Total Protein* 6.2 g/dL (6.0-8.3)
== END 2024-09-15 15:19 | disposition home or self-care (01) ==
LOC: LAB 15:23
PROVIDERS: PCP Student in an Organized Health Care Education/Training Program; Visit Provider Dermatology
DX: L20.89 Other atopic dermatitis (principal); Z79.899 Other long term (current) drug therapy
CPT/HCPCS: 36415; 80053; 85025